=== PATIENT | female | born 1950 | race Hispanic/Latino ===

== ENCOUNTER 2016-09-26 07:54 | Emergency (ER) | payer MEDICARE ==
--- NOTE | 2016-09-26 09:10 | RAD ---
LEFT KNEE RADIOGRAPHS 4 VIEWS: DATE: 09/26/16. PROVIDED CLINICAL HISTORY: Left knee pain status post injury. FINDINGS: There is no evidence for a fracture or other acute osseous abnormality. Degenerative changes are se en. If there is persistent clinical concern, conservative management and followup imaging are advis ed. IMPRESSION: As above. POS: [facility]
--- NOTE | 2016-09-26 09:11 | RAD ---
LEFT HAND RADIOGRAPHS 3 VIEWS: DATE: 09/26/16. PROVIDED CLINICAL HISTORY: Hand pain status post injury. FINDINGS: Degenerative changes are seen. No evidence for fracture or other acute osseous abnormality. If the re is persistent clinical concern, conservative management and followup imaging are advised. IMPRESSION: As above. POS: [facility]
== END 2016-09-26 09:13 | disposition home or self-care (01) ==
LOC: NAV ERS 07:54
DX: S80.02XA Contusion of left knee, initial encounter (principal); S60.222A Contusion of left hand, initial encounter; E11.9 Type 2 diabetes mellitus without complications; W18.30XA Fall on same level, unspecified, initial encounter